=== PATIENT | male | born 1975 | race Caucasian/White ===

== ENCOUNTER 2017-05-08 21:47 | Emergency (ER) | payer OTHER ==
[2017-05-08] MEDS ORDERED: KEFLEX500 M1 PO (22:07)
--- NOTE | 2017-05-08 22:07 | ED ANKLE/FOOT INJURY COMPLAINT ---
History of Present Illness General Chief Complaint: General Adult Stated Complaint: ?NAIL IN L FOOT Source: patient Exam Limitations: no limitations Vital Signs & Intake/Output Vital Signs & Intake/Output Vital Signs Date Time Temp Pulse Resp B/P B/P Pulse O2 O2 Flow FiO2 Mean Ox Delivery Rate 05/08 2215 98 Room Air 05/08 2215 98.0 78 18 118/82 98 Room Air Allergies Coded Allergies: No Known Allergies (05/08/17) Reconcile Medications Cephalexin (Keflex) 500 MG CAPSULE 1 CAP PO 4 TIMES/DAY puncture wound x 7 days Triage Nurses Notes Reviewed? yes Occurred: this afternoon Duration: hour(s): Timing: single episode today Severity: moderate Pain/Injury Location: Left: Foot. Method of Injury: "I accidently stepped on a board that had 2 nails stuck in the board." Modifying Factors: Improves With: rest. Associated Symptoms: pain in sole of left foot. HPI: 41 yo gentleman in prior good health, presents with pain in left plantar region after accidently stepping on 2 nails that were stuck through a piece of wood. The event occured earlier in the afternoon. He has no redness, lymphangitic streaking, fever, or swelling. He is otherwise well. Past History Travel History Traveled to [place] past 21 day No Medical History Any Pertinent Medical History? see below for history Surgical History Surgical History: none Family History Hx Contributory? No Review of Systems Review of Systems Constitutional: Reports: no symptoms. EENTM: Reports: no symptoms. Respiratory: Reports: no symptoms. Cardiovascular: Reports: no symptoms. GI: Reports: no symptoms. Genitourinary: Reports: no symptoms. Musculoskeletal: Reports: no symptoms. Skin: Reports: no symptoms. Neurological/Psychological: Reports: no symptoms. Hematologic/Endocrine: Reports: no symptoms. Immunologic/Allergic: Reports: no symptoms. All Other Systems: Reviewed and Negative Physical Exam Physical Exam General Appearance: well developed/nourished, mild distress Head: atraumatic Eyes: Bilateral: normal appearance. Ears, Nose, Throat: normal ENT inspection Neck: normal inspection Cardiovascular/Respiratory: regular rate/rhythm Back: normal inspection Leg/Knee/Thigh Left: normal range of motion Foot Left: 2 superficial punctate lesions c/w 2 nail puncture wounds. No sign of infection/abscess. Psychiatric: awake, alert, oriented x 3 Skin: intact, normal color, warm/dry Progress Differential Diagnosis: puncture wounds vs other. Plan of Care: Current Medications Sig/Leeanne Start time Last Medication Dose Stop Time Status Admin Tetanus/Diphtheria 0.5 ML ONCE ONE 05/08 2215 UNVr Toxoids Adsorbed 05/08 2216 (Decavac) Departure Departure Disposition: HOME OR SELF CARE Condition: Stable Clinical Impression Primary Impression: Puncture wound Departure Forms: Customer Survey General Discharge Information Prescriptions: Current Visit Scripts Cephalexin (Keflex) 1 CAP PO 4 TIMES/DAY #27 CAP x 7 days Comments tetanus given, rx for keflex... close follow up advised.
[2017-05-08 22:15] VITALS: BP 118/82
== END 2017-05-08 22:17 ==
LOC: ERH 21:47
DX: S91.332A Puncture wound without foreign body, left foot, initial encounter (principal); W45.0XXA Nail entering through skin, initial encounter; Y92.9 Unspecified place or not applicable; Y93.9 Activity, unspecified
CPT/HCPCS: 90471